=== PATIENT | male | born 1985 | race African-American/Black ===

== ENCOUNTER 2021-11-14 00:32 | Emergency (ER) | payer OTHER, SELFPAY ==
--- NOTE | ~2021-11-14 | XR_ITS ---
EXAMINATION: XR chest 1V portable EXAM DATE: 11/14/2021 02:42 INDICATION: Weakness, No Other Cardiac Hx Or Symptoms . TECHNIQUE: Portable AP frontal chest x-ray was obtained. There is no prior study for comparison. FINDINGS: The lungs are clear. There are no pleural effusions. The cardiomediastinal silhouette is within normal limits. There is no pneumothorax suspected. The bones and soft tissues are unremarkab le. IMPRESSION: No acute cardiopulmonary findings. Reviewed, dictated and finalized at location A. DETAILER
[2021-11-14 00:36] VITALS: BP 120/73; PULSE 83; RESP 20; TEMP 36.6; O2SAT 100
--- NOTE | 2021-11-14 02:48 | ED.GENADULT ---
HPI - General Adult General Chief complaint: Weakness Stated complaint: Weakness Time Seen by Provider: 11/14/21 02:28 History of Present Illness HPI narrative: Patient 35-year-old gentleman who presents the emergency department with chief complaint of generalized weakness body aches cough and malaise. The patient reports this started yesterday reports has been tested for Covid about a week ago patient states that he feels kind of rundown and weak. Patient reports symptoms or not improved by anything. Related Data Home Medications Medication Instructions Recorded Confirmed No Home Medications 11/14/21 11/14/21 Allergies Allergy/AdvReac Type Severity Reaction Status Date / Time No Known Allergies Allergy Verified 11/14/21 00:38 Review of Systems Review of Systems: A 10 system review of systems was completed on the patient and is negative except for what is stated in the HPI. Nursing and ancillary documentation was reviewed. Exam Narrative: GENERAL: Well-appearing, well-nourished, and in no acute distress. HEAD: Normocephalic, atraumatic. EYES: PERRLA and EOMI. ENT: Nares clear, no rhinorrhea or epistaxis. Mucous membranes moist. NECK: Supple. CHEST: Clear to auscultation. No respiratory distress. HEART: Regular rate and rhythm. No murmur heard. Normal peripheral pulses. ABDOMEN: Soft, nontender, nondistended, normal active bowel sounds. EXTREMITIES: Normal range of motion. No edema. SKIN: Warm, dry, no rash. NEURO: No focal deficits. Alert and oriented x3. PSYCH: Normal mood and affect. Course Vital Signs Vital signs: Vital Signs Temperature 36.6 C 11/14/21 00:36 Pulse Rate 83 11/14/21 00:36 Respiratory Rate 20 11/14/21 00:36 Blood Pressure 120/73 11/14/21 00:36 Pulse Oximetry 100 11/14/21 00:36 Temperature 36.6 C 11/14/21 00:36 Pulse Rate 83 11/14/21 00:36 Respiratory Rate 20 11/14/21 00:36 Blood Pressure 120/73 11/14/21 00:36 Pulse Oximetry 100 11/14/21 00:36 Medical Decision Making Vital Signs Vital Signs: Vital Signs Temperature 36.6 C 11/14/21 00:36 Pulse Rate 83 11/14/21 00:36 Respiratory Rate 20 11/14/21 00:36 Blood Pressure 120/73 11/14/21 00:36 Pulse Oximetry 100 11/14/21 00:36 Temperature 36.6 C 11/14/21 00:36 Pulse Rate 83 11/14/21 00:36 Respiratory Rate 20 11/14/21 00:36 Blood Pressure 120/73 11/14/21 00:36 Pulse Oximetry 100 11/14/21 00:36 Lab Data Result diagrams: 11/14/21 03:02 11/14/21 03:02 Labs: Lab Results 11/14/21 11/14/21 11/14/21 Range/Units 03:02 03:02 03:02 WBC 9.0 (4.5-10.0) K/mm3 RBC 5.02 (4.6-6.20) M/mm3 Hgb 15.3 (14.0-18.0) g/dL Hct 45.8 (42.0-52.0) % MCV 91.2 (80-100) fl MCH 30.5 (26-34) pg MCHC 33.4 (32-36) g/dl RDW 12.7 (11.5-14.5) % Plt Count 374 (150-375) k/mm3 MPV 9.5 (7.4-10.4) fl Immature Gran % (Auto) 0.2 (0-0.5) % Neut % (Auto) 84.4 H (45.5-73.1) % Lymph % (Auto) 8.2 L (18.3-44.2) % [place] % (Auto) 7.0 (2.6-8.5) % Eos % (Auto) 0.1 (0-4.4) % Baso % (Auto) 0.1 L (0.2-1.2) % Lymph # (Auto) 0.74 L (0.9-3.2) K/mm3 [place] # (Auto) 0.6 (0.1-0.6) K/mm3 Eos # (Auto) 0.0 (0-0.3) K/mm3 Baso # (Auto) 0.0 (0.0-0.1) K/mm3 Abs Immat Gran (auto) 0.02 (0.00-0.031) K/mm3 Absolute Neuts (auto) 7.6 H (1.3-6.7) K/mm3 Absolute Nucleated RBC 0.0 (0.0-0.012) K/mm3 Nucleated RBC % 0.0 (0.0-0.2) % Sodium 140 (137-145) mmol/L Potassium 3.9 (3.4-5.0) mmol/L Chloride 105 (98-107) mmol/L Carbon Dioxide 23 (22-30) mmol/L Anion Gap 12 (8-16) mmol/L BUN 13 (9-20) mg/dL Creatinine 1.00 (0.7-1.3) mg/dL Estim Creat Clear Calc 100 ml/min Estimated GFR > 60 (59 - ) Glucose 118 H (65-110) mg/dL Calcium 9.1 (8.4-10.2) mg/dL Total Bilirubin 0.9 (0.2-1.3) mg/dL AST 31 (17-59) U/L ALT 27 (
[2021-11-14 03:28] LABS: Basophils Percent Auto 0.1 % (0.2-1.2); Eosinophils Percent Auto 0.1 % (0-4.4); Hematocrit 45.8 % (42.0-52.0); Hemoglobin 15.3 g/dL (14.0-18.0); Immature Granulocyte Absolute 0.02 K/mm3 (0.00-0.031); Immature Granulocyte Percent A 0.2 % (0-0.5); Lymphocytes Absolute Auto 0.74 K/mm3 (0.9-3.2); Lymphocytes Percent Auto 8.2 % (18.3-44.2); Mean Corpuscular HGB Conc 33.4 g/dl (32-36); Mean Corpuscular Hemoglobin 30.5 pg (26-34); Mean Corpuscular Volume 91.2 fl (80-100); Mean Platelet Volume 9.5 fl (7.4-10.4); Monocytes Absolute Auto 0.6 K/mm3 (0.1-0.6); Neutrophils Absolute Auto 7.6 K/mm3 (1.3-6.7); Neutrophils Percent Auto 84.4 % (45.5-73.1); Platelet Count Result 374 k/mm3 (150-375); Red Blood Count 5.02 M/mm3 (4.6-6.20); Red Cell Distribution Width 12.7 % (11.5-14.5)
[2021-11-14 03:35] LABS: Alanine Aminotransferase 27 U/L (4-50); Albumin Level 4.6 g/dL (3.5-5.1); Alkaline Phosphatase 77 U/L (38-126); Anion Gap 12 mmol/L (8-16); Aspartate Amino Transferase 31 U/L (17-59); Bilirubin,Total 0.9 mg/dL (0.2-1.3); Blood Urea Nitrogen 13 mg/dL (9-20); Calcium 9.1 mg/dL (8.4-10.2); Carbon Dioxide 23 mmol/L (22-30); Chloride 105 mmol/L (98-107); Estimated CRCL calculation 100 ml/min; Estimated Glomerular Filt Rate > 60; Glucose 118 mg/dL (65-110); Potassium 3.9 mmol/L (3.4-5.0); Sodium 140 mmol/L (137-145)
[2021-11-14 03:41] LABS: Add Urine Microscopic? YES; Appearance Urine Clear (Clear); Bacteria Urine Trace /hpf; Bilirubin Urine Negative (Negative); Blood Urine Negative (Negative); Color Urine Amber (Yellow); Glucose Urine UA Negative (Negative); Ketones Urine Trace mg/dL (Negative); Leukocyte Esterase Ur Negative LEU/UL (Negative); Mucus Urine Heavy /lpf; Nitrate Urine Negative (Negative); Protein Urine 1+ mg/dL (Negative); RBC Urine 0-2 /hpf (0-2); Squamous Epithelial Cell Urine Rare /hpf (Few); WBC Urine 0-3 /hpf
[2021-11-14 03:48] LABS: Specific Grav Ur 1.034 (1.001-1.035)
[2021-11-14 04:01] LABS: Influenza A QL RT-PCR Negative (Negative); Influenza B QL RT-PCR Negative (Negative); SARS-CoV-2 RNA PCR Negative
== END 2021-11-14 04:24 | disposition home or self-care (01) ==
PROVIDERS: Emergency Provider Emergency Medicine
DX: B34.9 Viral infection, unspecified (principal); R53.1 Weakness; Z20.822 Contact with and (suspected) exposure to COVID-19
CPT/HCPCS: 36415; 71045; 80053; 81001; 85025; 87502; 87804; 99283; C9803; U0003; U0005

== ENCOUNTER 2024-03-29 21:57 | Emergency (ER) | payer BC, SELFPAY ==
[2024-03-29 22:01] VITALS: BP 138/90; PULSE 82; RESP 20; TEMP 36.8; O2SAT 97
--- NOTE | 2024-03-29 22:35 | ED.HA ---
HPI - Headache General Chief Complaint: Recheck/Abnormal Lab/Rx Stated Complaint: headache feels not right Time Seen by Provider: 03/29/24 22:12 History of Present Illness HPI Narrative: Several hours ago patient started having a headache, Came on gradual in onset, feels pressure to the front of his head with some throbbing, denies any recent trauma, no nausea vomiting, no photophobia, the pain has gradually resolved and he is now feeling better. has had similar headaches in the past. Related Data Allergies Allergy/AdvReac Type Severity Reaction Status Date / Time No Known Allergies Allergy Verified 03/29/24 22:04 Review of Systems Review of Systems: All systems reviewed & are unremarkable except as noted in HPI and below Exam Narrative: EXAMINATION OF ORGAN SYSTEMS/BODY AREAS: Constitutional: Vital signs per nursing GENERAL:[No acute distress, non-toxic appearing.] HEAD: Normal with no signs of head trauma. EYES: EOMI, conjunctiva normal, PERRL ENT: Hearing grossly intact LUNGS: Nonlabored breathing. HEART: [Regular rate and rhythm] ABD: [Soft], [nontender to palpation] EXT: Normal range of motion SKIN: [No rashes or lesions.] NEURO: [Alert and oriented x 3. No focal sensory or strength deficits.] No facial droop. CN 2 through 12 intact. Ambulating with normal steady gait. [id number] intact. Clear speech. PSYCH: Normal affect Course Vital Signs Vital signs: Vital Signs Temperature 98.2 F 03/29/24 22:01 Pulse Rate 82 03/29/24 22:01 Respiratory Rate 20 03/29/24 22:01 Blood Pressure 138/90 03/29/24 22:01 Pulse Oximetry 97 03/29/24 22:01 Oxygen Delivery Room Air 03/29/24 22:01 Temperature 98.2 F 03/29/24 22:01 Pulse Rate 82 03/29/24 22:01 Respiratory Rate 20 03/29/24 22:01 Blood Pressure 138/90 03/29/24 22:01 Pulse Oximetry 97 03/29/24 22:01 Oxygen Delivery Room Air 03/29/24 22:01 MDM - Headache MDM Narrative Medical decision making narrative: 38M presents to the emergency department for headache. Patient is hemodynamically stable. No focal neurological or cranial nerve deficits on exam. No meningeal signs. The headache was gradual in onset, it is not exertional and does not appear consistent with subarachnoid hemorrhage or intracranial bleeding. No trauma. No personal or family history of aneurysm. Patient states his headache is already better. I did offer pain medicine here but he declines them. No neurological deficits. Patient is comfortable going home for outpatient follow-up with primary care physician and provided with strict return precautions, especially for worsening headaches, neck pain/stiffness, fever or weakness, numbness/tingling or persistent vomiting. Discharge Plan Discharge Clinical Impression: Headache Patient Disposition: Home, Self-Care Condition: Stable Instructions: Antibiotic Form, Acute Headache (ED) Additional Instructions: Please follow up with your doctor; you can always return for any further issues. Prescriptions: New Excedrin Tension Headache 500-65 mg tablet 1 tablet PO Q6H PRN (Reason: pain) Qty: 20 0RF ibuprofen 600 mg tablet 600 mg PO TID PRN (Reason: fever or pain) Qty: 30 0RF Follow-up/Referrals: Nick Lopez, [Physician] - 2 Days PHYSICIAN NOT ON STAFF,NONSTAFF [Primary Care Provider] -
== END 2024-03-29 22:41 | disposition home or self-care (01) ==
PROVIDERS: Emergency Provider Emergency Medicine
DX: R51.9 Headache, unspecified (principal)
CPT/HCPCS: 99283

== ENCOUNTER 2024-08-17 01:43 | Emergency (ER) | payer BC, SELFPAY ==
[2024-08-17 01:49] VITALS: O2SAT 99
[2024-08-17 01:50] VITALS: BP 146/98; PULSE 82; TEMP 37.1; O2SAT 100
[2024-08-17 01:51] VITALS: BP 146/98; PULSE 83; RESP 20; TEMP 37.1; O2SAT 100
[2024-08-17 02:07] VITALS: O2SAT 100
--- NOTE | 2024-08-17 02:07 | PC.NURSE ---
Patient stated can I wait to see the doctor before you stick me with a needle? I prefer not to be stuck with a needle. ERP notified.
[2024-08-17 02:30] VITALS: O2SAT 98
--- NOTE | 2024-08-17 02:42 | ED.ABDPAIN ---
HPI - Abdominal Pain General Chief Complaint: Abdominal Pain Stated Complaint: im having tummy pain Time Seen by Provider: 08/17/24 02:35 History of Present Illness HPI narrative: 38-year-old male presenting to the emergency room with abdominal pain. States took Tylenol at home. During my initial encounter patient states his pain and all his symptoms actually subsided and he wishes to go home without evaluation. Patient denies any complaints at this time. Related Data Allergies Allergy/AdvReac Type Severity Reaction Status Date / Time No Known Allergies Allergy Verified 08/17/24 01:44 Review of Systems Review of Systems: As reviewed above Exam Narrative: GENERAL: [Well-appearing, well-nourished, and in no acute distress.] CHEST: Nonlabored respirations ABDOMEN: [Soft, nondistended], [nontender], [No rigidity or guarding] EXTREMITIES: Normal range of motion. [No edema.] SKIN: Warm, dry, no rash. NEURO: [No focal deficits]. Alert and oriented [x3.] Course Vital Signs Vital signs: Vital Signs Temperature 37.1 C 08/17/24 01:50 Pulse Rate 82 08/17/24 01:50 Blood Pressure 146/98 H 08/17/24 01:50 Pulse Oximetry 100 08/17/24 01:50 Temperature 37.1 C 08/17/24 01:51 Pulse Rate 83 08/17/24 01:51 Respiratory Rate 20 08/17/24 01:51 Blood Pressure 146/98 H 08/17/24 01:51 Pulse Oximetry 100 08/17/24 01:51 Oxygen Delivery Room Air 08/17/24 01:51 MDM - Abdominal Pain MDM Narrative Medical decision making narrative: 38-year-old male initially presenting with abdominal plain is a chief complaint. Took Tylenol at home. Symptoms have all subsided. Patient does not wish to stay for any kind of evaluation or workup at this time. Given patient's symptomatic resolution and reassuring examination and normal vitals he is stable for discharge at this time. He was given return precautions. Medical Records Attestation: I reviewed the patient's medical records. Discharge Plan Discharge Clinical Impression: Abdominal pain Patient Disposition: Home, Self-Care Condition: Stable Instructions: Antibiotic Form, Abdominal Pain (ED) Additional Instructions: If you have any return of your abdominal pain or wish to be evaluated please return to the ED or you can follow up with your regular doctor outpatient. Prescriptions: No Action Excedrin Tension Headache 500-65 mg tablet 1 tablet PO Q6H PRN (Reason: pain) Qty: 20 0RF ibuprofen 600 mg tablet 600 mg PO TID PRN (Reason: fever or pain) Qty: 30 0RF Follow-up/Referrals: PHYSICIAN NOT ON STAFF,NONSTAFF [Primary Care Provider] - Time of Disposition: 02:46
[2024-08-17 02:45] VITALS: O2SAT 100
== END 2024-08-17 03:01 | disposition home or self-care (01) ==
LOC: ANHED 02:49
PROVIDERS: Emergency Provider Student in an Organized Health Care Education/Training Program
DX: R10.9 Unspecified abdominal pain (principal)
CPT/HCPCS: 99281

== ENCOUNTER 2024-10-25 05:40 | Emergency (ER) | payer SELFPAY | END 2024-10-25 07:42 | disposition left against medical advice (07) | DX: R10.9 Unspecified abdominal pain (principal) | CPT/HCPCS: 99199 ==

== ENCOUNTER 2025-09-19 13:17 | Emergency (ER) | payer OTHER, SELFPAY ==
--- NOTE | ~2025-09-19 | CT_ITS ---
Tomy Mcdaniels Disu EXAMINATION: CT abdomen pelvis w con COMPARISON: None HISTORY: llq pain TECHNIQUE: Axial images were obtained through the abdomen, pelvis post administration of IV contrast. Oral contrast was also administered. Coronal reconstruction images were obtained from the axial views. CT scan performed using dose optimization techniques including the following automated exposure control; adjustment of mA and/or kV; use of iterative reconstruction technique. Automatic exposure control was used to reduce radiation dose. Permanent radiation dose record is archived to PACS. FINDINGS: CT abdomen: LUNG BASES: The lung bases are clear. The visualized portions of the heart and pericardium are unremarkable. LIVER: Portal vein patent. No intrahepatic biliary duct dilatation. SPLEEN: Unremarkable. KIDNEYS: Right Kidney: Unremarkable. No calculi. No hydronephrosis. Left Kidney: Unremarkable. No calculi. No hydronephrosis ADRENAL GLANDS: Unremarkable. PANCREAS: Unremarkable. GALLBLADDER/BILIARY: Gallbladder appears distended with dense large and noncalcified probable cholelithiasis, ultrasound is recommended to assess. STOMACH AND ESOPHAGUS: Visualized stomach and esophagus within normal limits. BOWEL/MESENTERY: Moderate fecal content, no colitis or diverticulitis. Appendix normal. Mesentery normal. No thickened or dilated loops of small bowel. ADENOPATHY/RETROPERITONEUM: No lymphadenopathy. AORTA/VASCULATURE: Normal caliber aorta. FREE FLUID OR FREE AIR: Minimal free fluid.. CT pelvis: SOLID ORGANS/REPRODUCTIVE: Unremarkable. BLADDER: The bladder is decompressed. There is circumferential thickening noted of the bladder wall. OSSEOUS STRUCTURES: No acute osseous abnormality.No suspicious lesions. OVERLYING SOFT TISSUES: Unremarkable. IMPRESSION: 1. Mild probable cystitis. 3. Correlate with symptoms of acute cholecystitis. Ultrasound suggested to further evaluate Reviewed, dictated and finalized at location P. CTOR OF PSYCHOLOGY IMPRESSION: 1. Mild probable cystitis. 3. Correlate with symptoms of acute cholecystitis. Ultrasound suggested to furt her evaluate
--- NOTE | ~2025-09-19 | US_ITS ---
US right upper quadrant Indication: ruq pain Comparison: None Technique: Tripathi-scale and color Doppler images were obtained. Findings: LIVER: Liver measures 19.1 cm. . GALLBLADDER/BILIARY: Minimal cholelithiasis with sludge, no significant wall thickening or pericholecystic fluid. CBD 5.4 mm. [place] sign negative. PANCREAS: Pancreas limited by bowel gas. Right Kidney: Right kidney 11.1 x 6.9 x 5.2 cm, normal. Impression: 1. Minimal cholelithiasis. Reviewed, dictated and finalized at location P. EMATICS PROFESSOR Impression: 1. Minimal cholelithiasis.
[2025-09-19 13:24] VITALS: BP 134/110; PULSE 62; RESP 22; O2SAT 100
[2025-09-19 13:27] VITALS: BP 152/98; PULSE 70; RESP 18; TEMP 36.6; O2SAT 98
[2025-09-19 13:44] LABS: Hematocrit 47.4 % (42.0-52.0); Hemoglobin 15.8 g/dL (14.0-18.0); Immature Granulocyte Percent A 0.1 % (0-0.5); Lymphocytes Absolute Auto 2.01 K/mm3 (0.9-3.2); Mean Corpuscular HGB Conc 33.3 g/dl (32-36); Mean Corpuscular Hemoglobin 30.3 pg (26-34); Mean Corpuscular Volume 91.0 fl (80-100); Nucleated Red Blood Cells Absolute Auto 0.000 K/mm3 (0.0-0.012); Nucleated Red Blood Cells Perc 0.0 % (0.0-0.2); Platelet Count Result 296 k/mm3 (150-375); Red Blood Count 5.21 M/mm3 (4.6-6.20); White Blood Count 7.1 K/mm3 (4.5-10.0)
[2025-09-19 13:56] LABS: Alanine Aminotransferase 14 U/L (6-50); Albumin Level 4.4 g/dL (3.5-5.1); Alkaline Phosphatase 87 U/L (38-126); Anion Gap 6 mmol/L (4-12); Aspartate Amino Transferase 25 U/L (17-59); Bilirubin,Total 0.7 mg/dL (0.2-1.3); Blood Urea Nitrogen 7 mg/dL (9-20); Calcium 9.3 mg/dL (8.4-10.2); Carbon Dioxide 30 mmol/L (22-30); Chloride 101 mmol/L (98-107); Estimated CRCL calculation 98 ml/min; Estimated Glomerular Filt Rate > 60; Glucose 113 mg/dL (65-110); Lipase 29 U/L (23-300); Potassium 3.9 mmol/L (3.4-5.0); Sodium 137 mmol/L (137-145); Total Protein 8.3 g/dL (6.3-8.2)
[2025-09-19 14:14] LABS: Add Urine Microscopic? NO; Appearance Urine Clear (Clear); Glucose Urine UA Negative (Negative); Leukocyte Esterase Ur Negative LEU/UL (Negative); Nitrate Urine Negative (Negative); Specific Grav Ur 1.017 (1.001-1.035)
[2025-09-19] MEDS: KETOROLAC 15 MG/ML VIAL (*BKC) IV PUSH (14:16)
[2025-09-19 14:53] VITALS: BP 150/92; PULSE 62; RESP 15; O2SAT 100
--- NOTE | 2025-09-19 16:04 | ED_ITS ---
HPI - Abdominal Pain General Chief Complaint: Abdominal Pain Stated Complaint: abd pain Time Seen by Provider: 09/19/25 13:24 Source: patient Mode of arrival: ambulatory Limitations: no limitations History of Present Illness HPI narrative: 39-year-old otherwise healthy here with the complaints of lower abdominal pain which is been on and off for last several months he has been to several ERs for the same his problem Had multiple CT scans and blood work done which were all normal however this morning he started having pain again. He states that he works for [employer] and has not seen any side sawyer but he is now living in and with well. Denies any fever or chills no history of nausea, vomiting, diarrhea. MD elicited complaint: abdominal pain Pertinent past history: none Onset (ago): day(s) (1) Pain Consistency: intermittent Quality: aching Radiation: LLQ and suprapubic Migration to: no migration Related Data Allergies Allergy/AdvReac Type Severity Reaction Status Date / Time No Known Allergies Allergy Verified 09/19/25 14:15 Review of Systems 2 Review of Systems: All systems reviewed & are unremarkable except as noted in HPI and below Constitutional: Constitutional: Reports no additional constitutional complaints Eyes: Eyes: Reports no additional eye complaints ENT: Reports system reviewed and no additional complaints, except as documented Cardiovascular: Cardiovascular: Reports no additional cardiovascular complaints Respiratory: Respiratory: Reports no additional respiratory complaints Gastrointestinal: Gastrointestinal: Reports no additional gastrointestinal complaints Musculoskeletal: Musculoskeletal: Reports no additional musculoskeletal complaints Exam 2 Narrative: GENERAL: Well-appearing, well-nourished, and in no acute distress. HEAD: Normocephalic, atraumatic. EYES: PERRLA and EOMI. ENT: Nares clear, no rhinorrhea or epistaxis. Mucous membranes moist. NECK: Supple. CHEST: Clear to auscultation. No respiratory distress. HEART: Regular rate and rhythm. No murmur heard. Normal peripheral pulses. ABDOMEN: Soft, nontender, nondistended, normal active bowel sounds. EXTREMITIES: Normal range of motion. No edema. SKIN: Warm, dry, no rash. NEURO: No focal deficits. Alert and oriented x3. PSYCH: Normal mood and affect. Course Course Emergency Course: informed patient about his lab work, CT findings as well as ultrasound findings. Cause of his pain is unknown at this time recommended him to follow with GI on outpatient basis. Vital Signs Vital signs: Vital Signs Pulse Rate 62 09/19/25 13:24 Respiratory Rate 22 H 09/19/25 13:24 Blood Pressure 134/110 H 09/19/25 13:24 Pulse Oximetry 100 09/19/25 13:24 Temperature 36.6 C 09/19/25 13:27 Pulse Rate 62 09/19/25 14:53 Respiratory Rate 15 09/19/25 14:53 Blood Pressure 150/92 H 09/19/25 14:53 Pulse Oximetry 100 09/19/25 14:53 Oxygen Delivery Room Air 09/19/25 13:27 MDM - Abdominal Pain Differential Diagnosis Differential diagnosis: Likely abdominal pain, calculus of kidney and diverticulitis Medical Records Attestation: I reviewed the patient's medical records. Lab Data Attestation: I reviewed the patient's lab results. 09/19/25 13:31 09/19/25 13:31 Labs: Lab Results 09/19/25 09/19/25 Range/Units 13:31 14:08 WBC 7.1 (4.5-10.0) K/mm3 RBC 5.21 (4.6-6.20) M/mm3 Hgb 15.8 (14.0-18.0) g/dL Hct 47.4 (42.0-52.0) % MCV 91.0 (80-100) fl MCH 30.3 (26-34) pg MCHC 33.3 (32-36) g/dl RDW 11.6 (11.5-14.5) % Plt Count 296 (150-375) k/mm3 MPV 8.8 (7.4-10.4) fl Immature Gran % (Auto) 0.1 (0-0.5) % Neut % (Auto) 60.3 (45.5-73.1) % Lymph % (Auto) 28.3 (18.3-44.2) % [place] % (Auto) 7.6 (2.6-8.5) % Eos % (Auto) 3.0 (0-4.4) % Baso % (Auto) 0.7 (0.2-1.2) % Lymph # (Auto) 2.01 (0.9-3.2) K/mm3 [place] # (Auto) 0.5 (0.1-0.6) K/mm3 Eos # (Auto) 0.2 (0-0.3) K/mm3 Baso # (Auto) 0.1 (0.0-0.1) K/mm3 Abs Immat Gran (auto) 0.01 (0.00-0.031) K/mm3 Absolute Neuts (auto) 4.3 (1.3-6.7) K/mm3 Absolute Nucleated RBC 0.000 (0.0-0.012) K/mm3 Nucleated RBC % 0.0 (0.0-0.2) % Sodium 137 (137-145) mmol/L Potassium 3.9 (3.4-5.0) mmol/L Chloride 101 (98-107) mmol/L Carbon Dioxide 30 (22-30) mmol/L Anion Gap 6 (4-12) mmol/L BUN 7 L D (9-20) mg/dL Creatinine 0.92 (0.7-1.3) mg/dL Estim Creat Clear Calc 98 ml/min Estimated GFR > 60 (59 - ) Glucose 113 H (65-110) mg/dL Calcium 9.3 (8.4-10.2) mg/dL Total Bilirubin 0.7 (0.2-1.3) mg/dL AST 25 (17-59) U/L ALT 14 (6-50) U/L Alkaline Phosphatase 87 (38-126) U/L Total Protein 8.3 H (6.3-8.2) g/dL Albumin 4.4 (3.5-5.1) g/dL Lipase 29 (23-300) U/L Urine Color Yellow (Yellow) Urine Appearance Clear (Clear) Urine pH 7.5 (5.0-9.0) Ur Specific [place] 1.017 (1.001-1.035) Urine Protein Negative (Negative) mg/dL Urine Glucose (UA) Negative (Negative) mg/dL Urine Ketones Negative (Negative) mg/dL Ur Blood (Man) Negative (Negative) Urine Nitrate Negative (Negative) Urine Bilirubin Negative (Negative) Urine Urobilinogen 1.0 (<2.0) mg/dL Leukocyte Esterase Rfl Negative (Negative) STUART/UL Imaging Data Radiologist's impression: ITS Impressions Abdomen/Pelvis CT 09/19/25 14:47 IMPRESSION: 1. Mild probable cystitis. 3. Correlate with symptoms of acute cholecystitis. Ultrasound suggested to further evaluate Upper Quadrant Ultrasound 09/19/25 15:53 Impression: 1. Minimal cholelithiasis. Discharge Plan Discharge Clinical Impression: Abdominal pain Qualifiers: Abdominal location: unspecified location Qualified Code(s): R10.9 - Unspecified abdominal pain Cholelithiasis Qualifiers: Cholelithiasis location: gallbladder Cholecystitis presence: without cholecystitis Biliary obstruction: without biliary obstruction Qualified Code(s): K80.20 - Calculus of gallbladder without cholecystitis without obstruction Patient Disposition: Home Condition: Stable Instructions: Gallstones (ED), Abdominal Pain (ED) Additional Instructions: You may have to follow with Gastroenterology for further evaluation of your recurrent abdominal pain , , Your work up today showed no acute findings , you do have gall stones but your gall bladder is not infected ,do not need any emergent interventions, Patient Language: Italian Prescriptions: No Action Excedrin Tension Headache 500-65 mg tablet 1 tablet PO Q6H PRN (Reason: pain) Qty: 20 0RF ibuprofen 600 mg tablet 600 mg PO TID PRN (Reason: fever or pain) Qty: 30 0RF Follow-up/Referrals: PHYSICIAN,SYSTEMS ANALYST ENGINEER [Primary Care Provider, Internal Medicine] Jose Sidhu MD [Physician, Gastroenterology] Time of Disposition: 16:15
== END 2025-09-19 17:19 | disposition home or self-care (01) ==
PROVIDERS: Emergency Medicine; Emergency Provider Family Medicine
DX: R10.30 Lower abdominal pain, unspecified (principal); K80.20 Calculus of gallbladder without cholecystitis without obstruction; R93.41 Abnormal radiologic findings on diagnostic imaging of renal pelvis, ureter, or bladder
CPT/HCPCS: 36415; 74177; 76705; 80053; 81003; 83690; 85025; 96374; 99284; J1885; Q9967

== ENCOUNTER 2025-09-19 19:26 | Emergency (ER) | payer OTHER, SELFPAY ==
[2025-09-19] VITALS (22 sets, daily range): BP systolic 114–154; BP diastolic 73–102; PULSE 58–84; RESP 13–22; TEMP 36.8; O2SAT 97–100
--- NOTE | ~2025-09-19 | XR_ITS ---
Examination: XR chest 1V portable Clinical History: chest pain? Comparison: 11/14/2021 Technique: Portable AP Findings: Heart size normal. Lungs clear. No acute bony abnormality. IMPRESSION: 1. No acute cardiopulmonary findings given portable technique. Reviewed, dictated and finalized at location R. RNAL COMMUNICATIONS MANAGER
--- NOTE | 2025-09-19 21:56 | ECG_ITS ---
Test Date: 2025-09-19 22:18:40 Measurements Intervals [place] Rate: 60 P: 53 WA: 186 QRS: 38 QRSD: 94 T: 49 QT: 387 QTc: 388 Interpretive Statements SINUS RHYTHM POSSIBLE RIGHT VENTRICULAR CONDUCTION DELAY [RSR (QR) IN V1/V2] WITHIN NORMAL LIMITS No previous ECG available for comparison Electronically Signed On 09-20-2025 09:18:45 [employer]AGER AND STRAPPER by Jose Kong M.D.
[2025-09-19] MEDS: FAMOTIDINE 20 MG/2 ML VIAL IV PUSH (22:21)
--- NOTE | 2025-09-19 23:12 | ED_ITS ---
HPI - Abdominal Pain General Chief Complaint: Abdominal Pain Stated Complaint: abdominal pain Time Seen by Provider: 09/19/25 21:03 History of Present Illness HPI narrative: Patient presenting with severe epigastric pain, had been seen here earlier for the same, had unremarkable labs, CT just showing small gallstones. Reports that the pain is intolerable. Related Data Allergies Allergy/AdvReac Type Severity Reaction Status Date / Time No Known Allergies Allergy Verified 09/19/25 19:27 Review of Systems Review of Systems: All systems reviewed & are unremarkable except as noted in HPI and below Exam Narrative: EXAMINATION OF ORGAN SYSTEMS/BODY AREAS: Constitutional: Vital signs per nursing GENERAL: Morning every so often with pain HEAD: Normal with no signs of head trauma. EYES: EOMI, conjunctiva normal ENT: Hearing grossly intact LUNGS: Nonlabored breathing. HEART: [Regular rate and rhythm] ABD: [Soft], slightly tender epigastric abdomen EXT: Normal range of motion SKIN: [No rashes or lesions.] NEURO: [Alert and oriented x 3. No gross focal sensory or strength deficits.] PSYCH: Normal affect Course Vital Signs Vital signs: Vital Signs Temperature 98.2 F 09/19/25 19:37 Pulse Rate 68 09/19/25 19:37 Respiratory Rate 20 09/19/25 19:37 Blood Pressure 154/73 H 09/19/25 19:37 Pulse Oximetry 100 09/19/25 19:37 Temperature 98.2 F 09/19/25 19:37 Pulse Rate 68 09/19/25 19:37 Respiratory Rate 20 09/19/25 19:37 Blood Pressure 154/73 H 09/19/25 19:37 Pulse Oximetry 100 09/19/25 19:37 MDM - Abdominal Pain MDM Narrative Medical decision making narrative: Electronic medical record was reviewed. Patient presented to the ED with complaint of [abdominal pain]. Vitals [were within acceptable limits]. Physical exam revealed a soft abdomen, slight epigastric tenderness, moaning patient in pain. Based on the patient's history and physical exam, my differential includes but is not limited to [gastritis, gastroenteritis, cholecystitis, pancreatitis; considered possible dissection or ACS, but I was able to review his imaging and labs from earlier today, able to rule out cholecystitis, pancreatitis, dissection with normal aorta]. At this point given his symptoms I suspect possible gastric ulcer or gastritis/esophagitis. Will also obtain EKG and chest x-ray. Chest x-ray on my independent interpretation does not show any mediastinal wide loraine, pneumothorax, or cardiomegaly. EKG - 12-Lead: Performed at 2218. Interpreted by me. [Sinus rhythm]. Rate 60. [Normal] axis. ME-interval [normal]. QRS duration [normal]. QTc [normal]. [No ST segment elevation or depression]. [T-wave normal]. Impression: No EKG evidence of acute ischemia or dysrhythmia. [IV access was established by nursing staff. Patient was given does droperidol, with improvement in his symptoms, then a dose of famotidine, with essential resolution of his symptoms]. On reevaluation, the patient states that they are feeling much better. There were no witnessed episodes of vomiting in the emergency department. They are not complaining of any new abdominal pain. Repeat examination did not show any significant guarding or rebound. No new tenderness. At this time I do not feel there is any further emergent treatment to be provided. The patient was given strict return precautions, if they are to develop any worsening abdominal pain, vomiting, or blood in the vomit they are to return to the emergency department immediately. Patient verbally acknowledges understanding these directions. [The patient was informed of the above diagnostic test findings.] No further workup is necessary at this time. They will be discharged home [with prescriptions for famotidine and Maalox]. They were advised to follow-up with GI in 2 days and given instructions for medications and diet to avoid. The patient feels that this is appropriate medical decision making and verbalizes an understanding of the discharge instructions. Discharge Plan Discharge Clinical Impression: Abdominal pain, epigastric Patient Disposition: Home Condition: Stable Instructions: Epigastric Pain (ED) Additional Instructions: Please follow-up with the GI specialist. Start taking the medications as prescribed. Try to avoid taking NSAIDs such as ibuprofen, Aleve, and try to avoid any caffeine/coffee, soda, spicy or fried or greasy foods, and alcohol. You can always return to the ER for any further issues. Patient Language: Hebrew Prescriptions: New famotidine 20 mg tablet 20 mg PO DAILY Qty: 30 0RF dicyclomine 20 mg tablet 20 mg PO TID PRN (Reason: abdominal pain) Qty: 30 0RF alum-mag hydroxide-simeth [Maalox Advanced] 200-200-20 mg/5 mL suspension 10 ml PO QID PRN (Reason: dyspepsia) Qty: 200 0RF Rx Instructions: administer between meals and at bedtime No Action Excedrin Tension Headache 500-65 mg tablet 1 tablet PO Q6H PRN (Reason: pain) Qty: 20 0RF ibuprofen 600 mg tablet 600 mg PO TID PRN (Reason: fever or pain) Qty: 30 0RF Follow-up/Referrals: PHYSICIAN,TECHNICAL TRAINER [Primary Care Provider, Internal Medicine]
== END 2025-09-19 23:25 | disposition home or self-care (01) ==
PROVIDERS: Emergency Provider Emergency Medicine
DX: R10.13 Epigastric pain (principal)
CPT/HCPCS: 71045; 93005; 96372; 96374; 99284; J1790